=== PATIENT | male | born 1995 | race Caucasian/White ===

== ENCOUNTER 2019-09-15 11:12 | Inpatient (IN) | payer MEDICAID, SELFPAY ==
[~2019-09-15] VITALS: Ht 172.7 cm; Wt 70.3 kg
[2019-09-15] VITALS (7 sets, daily range): BP systolic 99–140; BP diastolic 60–86
[2019-09-15] MEDS ORDERED: ACETAMINOPHEN EXTRA STRENGTH 500 MG TAB PO ONE (11:15)
--- NOTE | 2019-09-15 11:15 | NUR ---
24 y/o male biba from [facility] to vent for fever and sob. pt able to speak, states fever and sob started this morning. per ems pt is usually off the vent during the day and on it at night time. rr even and tachypnic. pt febrile of 100 upon arival. cooling measures in place. productive cough noted. denies n/v/d. placed on monitor.
--- NOTE | 2019-09-15 11:21 | NUR ---
20g iv placed to pts rt forearm, labs drawn at this time
--- NOTE | 2019-09-15 11:31 | NUR ---
influenza and covid-19 swab collected from pt
[2019-09-15 11:41] LABS: BASOPHILS # (AUTO) 0.1 K/uL (0.00-0.22); BASOPHILS % (AUTO) 0.5 % (0.0-2.0); EOSINOPHILS # (AUTO) 0.1 K/uL (0-0.4); EOSINOPHILS % (AUTO) 1.1 % (0.0-4.0); HEMATOCRIT 38.9 % (36-52); HEMOGLOBIN 12.5 g/dL (12.0-18.0); LYMPHOCYTES % (AUTO) 7.6 % (20.5-51.1); MEAN CORPUSCULAR HEMOGLOBIN 27 pg (27-31); MEAN CORPUSCULAR HGB CONC 32 g/dL (33-37); MEAN CORPUSCULAR VOLUME 83.6 fL (80-94); MONOCYTES # (AUTO) 0.8 K/uL (0.8-1.0); MONOCYTES % (AUTO) 6.3 % (1.7-9.3); NEUTROPHILS # (AUTO) 10.5 K/uL (1.8-7.7); NEUTROPHILS % (AUTO) 84.5 % (42.2-75.2); PLATELET COUNT (AUTO) 416 K/uL (140-450); RED BLOOD CELL COUNT(AUTO) 4.65 MIL/uL (4.20-6.10); RED CELL DISTRIBUTION WIDTH 14.7 % (11.6-13.7); WHITE BLOOD COUNT (AUTO) 12.5 K/uL (4.8-10.8)
--- NOTE | 2019-09-15 11:46 | NUR ---
xray at bedside
[2019-09-15 12:00] LABS: ALBUMIN 2.9 g/dL (3.4-5.0); ANION GAP 15.7 (8-16); CARBON DIOXIDE 29.5 mmol/L (21-32); CREATININE 0.2 mg/dL (0.6-1.3); POTASSIUM 4.2 mmol/L (3.5-5.1); TOTAL BILIRUBIN 0.3 mg/dL (0.0-1.0)
[2019-09-15 12:04] LABS: PROTHROMBIN TIME 11.1 secs (10.8-13.4)
[2019-09-15] MEDS ORDERED: NACL 0.9% 500 ML IV ONE (12:10)
[2019-09-15] MEDS ORDERED: PIPERACILLIN/TAZOBACTAM 3.375 GM in DEXTROSE 5% 50 ML IV ONE (12:10)
[2019-09-15] MEDS ORDERED: ACETAMINOPHEN 650 MG SUPP RC ONE (12:10)
[2019-09-15] MEDS ORDERED: ACETAMINOPHEN 325 MG SUPP RC ONE (12:10)
[2019-09-15] MEDS ORDERED: PIPERACILLIN/TAZOBACTAM 3.375 GM VIAL IV ONE (12:17)
[2019-09-15] MEDS ORDERED: MIRABULK PO (12:24)
[2019-09-15] MEDS ORDERED: CHOL200074 PO (12:24)
[2019-09-15] MEDS ORDERED: MAGN400S60 PO (12:24)
[2019-09-15] MEDS ORDERED: DOCU-299 PO (12:24)
[2019-09-15] MEDS ORDERED: DIPH25TA53 PO (12:24)
[2019-09-15] MEDS ORDERED: LORA10TA19 PO (12:24)
[2019-09-15] MEDS ORDERED: MULT-153 PO (12:24)
[2019-09-15] MEDS ORDERED: METO25TE2 PO (12:24)
--- NOTE | 2019-09-15 12:27 | NUR ---
PT PLACED ON BEDPAN.
[2019-09-15] MEDS ORDERED: LORazepam 2 MG/ML VIAL IM/IVP PRN (12:35)
[2019-09-15] MEDS ORDERED: ACETAMINOPHEN 325 MG TAB PO PRN (12:35)
[2019-09-15] MEDS ORDERED: ONDANSETRON 4 MG/2 ML VIAL IM/IVP PRN (12:35)
[2019-09-15] MEDS ORDERED: DOCUSATE SODIUM 100 MG GELCAP PO PRN (12:35)
--- NOTE | 2019-09-15 12:35 | NUR ---
RESPIRATORY AT BEDSIDE FOR ABG
[2019-09-15] MEDS ORDERED: BISA-213 RC (12:41)
[2019-09-15] MEDS ORDERED: ROBAC PO (12:41)
[2019-09-15] MEDS ORDERED: IBUP-44 PO (12:41)
[2019-09-15] MEDS ORDERED: NA P133E RC (12:41)
[2019-09-15] MEDS ORDERED: FLONAS NS (12:41)
--- NOTE | 2019-09-15 12:47 | NUR ---
PT REMOVED FROM BEDPAN AT THIS TIME, NO FURTHER COMPLAINTS
--- NOTE | 2019-09-15 13:23 | NUR ---
PT LAYING IN BED POSITIONED FOR COMFORT. REMAINS ON MONITOR. NO FURTHER COMPLAINTS AT THIS TIME. WILL CONTINUE TO MONITOR
[2019-09-15] MEDS ORDERED: guaiFENesin/CODEINE 100/10MG 5 ML UDC PO PRN (14:10)
[2019-09-15] MEDS ORDERED: SODIUM PHOSPHATE 118 ML ENEM RC PRN (14:10)
[2019-09-15] MEDS ORDERED: MAGNESIUM HYDROXIDE 2400 MG/30 ML UDC PO PRN (14:10)
[2019-09-15] MEDS ORDERED: BISACODYL 10 MG SUPP RC PRN (14:10)
[2019-09-15] MEDS ORDERED: LORATADINE 10 MG TAB PO PRN (14:10)
[2019-09-15] MEDS ORDERED: IBUPROFEN 200 MG TAB PO PRN (14:10)
[2019-09-15] MEDS ORDERED: IBUPROFEN 400 MG TAB PO PRN (14:23)
--- NOTE | 2019-09-15 14:53 | NUR ---
RESTING WITH EYES CLOSED. VISIBLE RISE AND FALL OF THE CHEST. AROUSABLE TO NAME. WILL CONTINUE TO MONITOR
[2019-09-15] MEDS: NACL 0.9% 1,000 ML IV SCH (15:30)
[2019-09-15] MEDS ORDERED: HYDROcodone/APAP 5/325 MG 1 TAB TAB PO PRN (15:30)
--- NOTE | 2019-09-15 15:30 | NUR ---
RECEIVED PATIENT FROM ER VIA GURNEY, OBTAINED REPORT AT BEDSIDE, PT IS AAOX4, APHASIC, TRACH TO VENT, FOLLOW COMMANDS, VSS, DENIES PAIN, NO S/S OF DISTRESS, RHONCHI LUNG SOUNDS MECHE. O2 SAT AT 95 %, SR ON PESTICIDE APPLICATOR, CAP REFILL <2 SEC, NO EDEMA PRESENT, SOFT ABDOMEN WITH ACTIVE BOWEL SOUNDS, CONTINENT WITH B&B'S, SKIN IS INTACT, WARM AND DRY TO TOUCH, IV SITE TO RIGHT FOREARM, 20GA, PATENT AND SL, SEVERE WEAKNESS TO ALL EXTREMITIES, HOB ELEVATED TO 30 DEGREES, SAFETY MEASURES IN PLACE, CALL LIGHT WITHIN REACH, WILL CONTINUE TO MONITOR.
--- NOTE | 2019-09-15 15:36 | NUR ---
Patient will be admitted to care of DR MONTIEL. Admited to ICU. Will go to room 3. Belongings list completed. Report to BENNETT GÓMEZ.
[2019-09-15 16:03] LABS: PHOSPHORUS 4.4 mg/dL (2.5-4.9)
[2019-09-15 16:25] LABS: CKMB RELATIVE INDEX 2.1 (0.0-2.5); CREATINE KINASE MB 7.1 ng/mL (0-3.6)
--- NOTE | 2019-09-15 16:40 | NUR ---
DR. PRUITT CAME IN TO SEE PATIENT AT BEDSIDE, UPDATED PATIENT'S CONDITION, WILL FOLLOW UP WITH NEW ORDERS.
--- NOTE | 2019-09-15 18:00 | NUR ---
NO CHANGE OF CONDITION, PT IS 1:1 FEEDER, ATE 25% OF DINNER AT THIS TIME, POSITION CHANGED FOR OFF LOAD PRESSURE.
[2019-09-15] MEDS: PIPERACILLIN/TAZOBACTAM 3.375 GM in DEXTROSE 5% 50 ML IV SCH ×2 (18:51→23:52)
--- NOTE | 2019-09-15 19:20 | NUR ---
BEDSIDE REPORT RECEIVED FROM AM SHIFT RN, PT IS AAOX4, APHASIC, TRACH TO VENT, ON ACVC MODE FIO2 40, TV 500, RR 15, PEEP 5. FOLLOW COMMANDS, VSS, DENIES PAIN, NO S/S OF DISTRESS, RHONCHI LUNG SOUNDS. ST ON REFORMATORY ATTENDANT, CAP REFILL <2 SEC, NO EDEMA NOTED, SOFT ABDOMEN WITH ACTIVE BOWEL SOUNDS. SKIN INTACT, WARM AND DRY. IV SITE TO RIGHT FOREARM, 20G INFUSING NS AT 75 ML/HR. SEVERE WEAKNESS TO ALL EXTREMITIES, HOB ELEVATED TO 30 DEGREES, SAFETY MEASURES IN PLACE, CALL LIGHT WITHIN REACH, WILL CONTINUE TO MONITOR.
--- NOTE | 2019-09-15 19:20 | NUR ---
REPORT GIVEN TO FLASH DEVELOPER NURSE AT BEDSIDE FOR CONTINUE OF CARE, PT IS IN STABLE CONDITION AT THIS TIME.
[2019-09-15] MEDS: KETOCONAZOLE 2% 15 GM TUBE TP SCH (21:00)
[2019-09-15] MEDS: DOCUSATE SODIUM 100 MG GELCAP PO SCH (21:00)
--- NOTE | 2019-09-15 21:16 | NUR ---
SCHEDULED MEDICATIONS GIVEN. PO COLACE GIVEN WITH APPLESAUCE. CALL LIGHT WITHIN REACH. SAFETY PRECAUTIONS IN PLACE. WILL CONTINUE MONITOR.
[2019-09-15] MEDS ORDERED: VANCOMYCIN PER PHARMACY MC PRN (22:00)
[2019-09-15] MEDS ORDERED: DEXTROSE 5% IV ONE (22:45)
[2019-09-15] MEDS ORDERED: VANCOMYCIN IV ONE (22:45)
[2019-09-15] MEDS ORDERED: VANCOMYCIN HCL IV ONE (22:45)
[2019-09-15] MEDS ORDERED: VANCOMYCIN 1,000 MG VIAL ONE (23:31)
--- NOTE | 2019-09-15 23:48 | NUR ---
PT WATCHING TELEVISION. RESTING IN BED. RESPIRATIONS EVEN AND UNLABORED. SAFETY PRECAUTIONS IN PLACE. WILL CONTINUE MONITOR.
[2019-09-16] VITALS (11 sets, daily range): BP systolic 91–115; BP diastolic 47–75
--- NOTE | 2019-09-16 00:18 | NUR ---
PT HAS EYES CLOSED. TRACH TO VENT. RESPIRATIONS EVEN AND UNLABORED. CHEST RISE IS SYMMETRICAL. HOB 30 DEGREES. BED LOCKED IN LOWEST POSITION. WILL CONTINUE TO MONITOR.
--- NOTE | 2019-09-16 02:33 | NUR ---
PT HAS EYES CLOSED, RESTING IN BED. TRACH TO VENT. RESPIRATIONS EVEN AND UNLABORED. CHEST RISE IS SYMMETRICAL. HOB 30 DEGREES. BED LOCKED IN LOWEST POSITION. WILL CONTINUE TO MONITOR.
--- NOTE | 2019-09-16 03:02 | NUR ---
PT HAD BOWEL MOVEMENT. PT CLEANED, REPOSITIONED. BED LOCKED IN LOWEST POSITION. HOB 30 DEGREES. WILL CONTINUE TO MONITOR.
[2019-09-16 03:49] LABS: APPEARANCE,URINE CLEAR (CLEAR); COLOR,URINE YELLOW (YELLOW)
[2019-09-16 03:50] LABS: BILIRUBIN,URINE NEGATIVE (NEGATIVE); BLOOD, URINE NEGATIVE (NEGATIVE); UGLUCOSE NEGATIVE (NEGATIVE)
[2019-09-16 03:51] LABS: LEUKOCYTE ESTERASE ,URINE NEGATIVE (NEGATIVE); NITRITE, URINE NEGATIVE (NEGATIVE)
[2019-09-16 03:55] LABS: RBC,URINE 0-5 /HPF (0-5)
[2019-09-16 04:01] LABS: WBC,URINE 0-5 /HPF (0-5)
--- NOTE | 2019-09-16 04:58 | NUR ---
PATIENT APPEARS STABLE ON CHARTED SETTINGS. NO CHANGES. CONTINUE TO MONITOR.
[2019-09-16] MEDS: NACL 0.9% 1,000 ML IV SCH ×3 (05:42→13:17)
[2019-09-16] MEDS: PIPERACILLIN/TAZOBACTAM 3.375 GM in DEXTROSE 5% 50 ML IV SCH ×3 (05:43→17:45)
[2019-09-16 06:30] LABS: BASOPHILS # (AUTO) 0.1 K/uL (0.00-0.22); BASOPHILS % (AUTO) 0.5 % (0.0-2.0); EOSINOPHILS # (AUTO) 0.2 K/uL (0-0.4); HEMATOCRIT 33.9 % (36-52); LYMPHOCYTES # (AUTO) 1.4 K/uL (2.0-11.5); LYMPHOCYTES % (AUTO) 13.1 % (20.5-51.1); MEAN CORPUSCULAR HEMOGLOBIN 27 pg (27-31); MEAN CORPUSCULAR HGB CONC 32 g/dL (33-37); MEAN CORPUSCULAR VOLUME 84.5 fL (80-94); MONOCYTES # (AUTO) 0.7 K/uL (0.8-1.0); MONOCYTES % (AUTO) 6.9 % (1.7-9.3); NEUTROPHILS # (AUTO) 8.1 K/uL (1.8-7.7); NEUTROPHILS % (AUTO) 77.5 % (42.2-75.2); PLATELET COUNT (AUTO) 378 K/uL (140-450); RED BLOOD CELL COUNT(AUTO) 4.02 MIL/uL (4.20-6.10); RED CELL DISTRIBUTION WIDTH 14.9 % (11.6-13.7); WHITE BLOOD COUNT (AUTO) 10.4 K/uL (4.8-10.8)
--- NOTE | 2019-09-16 06:55 | NUR ---
PT REQUESTING SUCTION. SUCTION PROVIDED. WILL CONTINUE TO MONITOR
--- NOTE | 2019-09-16 07:00 | NUR ---
PT REQUESTED TO USE URINAL, WILL CONTINUE TO MONITOR.
[2019-09-16 07:22] LABS: ALBUMIN 2.5 g/dL (3.4-5.0); ANION GAP 11.2 (8-16); ASPARTATE AMINOTRANSFERASE 32 U/L (15-37); CARBON DIOXIDE 28.2 mmol/L (21-32); CHLORIDE 99 mmol/L (98-107); CREATININE 0.2 mg/dL (0.6-1.3); GFR ARICAN-AMERICAN 756 mL/min (>90); GLUCOSE 91 mg/dL (74-106); LACTATE DEHYDROGENASE 137 U/L (85-227); PHOSPHORUS 4.4 mg/dL (2.5-4.9); POTASSIUM 3.4 mmol/L (3.5-5.1); SODIUM SERUM 135 mmol/L (136-145); TOTAL BILIRUBIN 0.4 mg/dL (0.0-1.0); UREA NITROGEN, BLOOD 10 mg/dL (7-18)
--- NOTE | 2019-09-16 07:25 | NUR ---
RECEIVED TRACH PT WITH A SHILEY 6 TRACH ON VENT. SETTINGS AC 12, VT 450, PEEP 5 AND FIO2 35%. PT SUCTIONED OBTAINED SMALL AMOUNT OF THICK PALE YELLOW SECRETIONS , AIRWAY IS PATENT AND TRACH IS SECURE. PT IS AWAKE AND NOT IN ANY DISTRESS. VENT IS PLUGGED INTO A RED OUTLET WITH ALARMS ON AND FUNCTIONING. WILL CONTINUE TO MONITOR.
--- NOTE | 2019-09-16 07:26 | NUR ---
BEDSIDE REPORT GIVEN TO FATIMAH GUAJARDO. FOR CONTINUITY OF CARE. PT IN STABLE CONDITION.
--- NOTE | 2019-09-16 08:00 | NUR ---
Patient ST on monitor without ectopy. On vent to trach, cpap mode and breathing well. Suctioned for thin white secretions. No co pain. Mil Rich RN
[2019-09-16] MEDS: DOCUSATE SODIUM 100 MG GELCAP PO SCH ×2 (08:22→22:59)
[2019-09-16] MEDS: LACTOBACILLUS RHAMNOSUS GG 1 EACH CAP PO SCH (08:23)
[2019-09-16] MEDS: POLYETHYLENE GLYCOL 17 GM/PKT PO SCH (08:25)
[2019-09-16] MEDS: MULTIVITAMIN 1 TAB PO SCH (08:26)
[2019-09-16] MEDS: METOPROLOL SUCCINATE 50 MG TABER PO SCH (08:26)
[2019-09-16] MEDS: CHOLECALCIFEROL 1,000 IU TAB PO SCH (08:27)
[2019-09-16] MEDS: FLUTICASONE NASAL 50 MCG/ACTUATION 16 GM BTL NS SCH (08:29)
--- NOTE | 2019-09-16 09:02 | NUR ---
PATIENT HAS BEEN SCREENED AND CATEGORIZED HIGH NUTRITION RISK. PATIENT WILL BE SEEN WITHIN 1-2 DAYS OF ADMISSION. 09/16/19-09/17/[address]
[2019-09-16] MEDS: KETOCONAZOLE 2% 15 GM TUBE TP SCH (10:07)
--- NOTE | 2019-09-16 10:30 | NUR ---
Patient having soft brown bm, and voiding in urinal. Patient repositioned to comfort after linens changed. Mil Rich RN
--- NOTE | 2019-09-16 11:03 | NUR ---
DISCHARGE PLANNING: THIS IS A 24 Y/O MALE PATIENT FROM [facility], WHO WAS BIBA DUE TO TEMP 100.4 AND SOB. PAST MEDICAL HISTORY INCLUDE DUCHENNE MUSCULAR DYSTROPHY, OBSTRUCTIVE SLEEP APNEA, RESTRICTIVE BLANCA DISEASE, CHF AND HTN. INITIAL DIAGNOSIS OF PNEUMONIA, R/O COVID. CURRENT LABS INCLUDE WBC 10.4, H/H 11.0/33.9, BUN/CREA 10/0.2 AND ALB 2.5. URINE, BLOOD AND SPUTUM CS PENDING. NEGATIVE INF A AND B. COVID 19 PENDING. ON VANCO, ZOSYN. CXR SHOWED MILD LEFT BASILAR OPACITY AND TRACE LEFT PLEURAL EFFUSION. ID AND PULMO CONSULTS IN PLACE. DC PLAN BACK TO [facility] ONCE STABLE. Addendum: 09/19/19 at 1200 by Karissa Merida RECEIVED AN ORDER TO DC BACK TO [facility] FOR IV ZOSYN FOR 5 DAYS AND PT. ORDER AND PT NOTES FAXED TO [facility]. WILL FOLLOW UP. Addendum: 09/19/19 at 1203 by Karissa Merida CM CONTACTED FRANKIEArnav WALKER OF [facility] AT [phone] REGARDING DC PLAN, GUANAKO DOROTEO. LEFT A DETAILED MESSAGE INCLUDING CONTACT INFO. Addendum: 09/19/19 at 1307 by Karissa Merida CM PER ANA PAULA, PATIENT WILL GO TO ROOM 24A DR. NGUYEN. WILL SET UP TRANSPORT. Addendum: 09/19/19 at 1352 by Karissa Merida CM CONTACTED [facility] AT [phone], ABLE TO SPEAK TO JOHNATHAN/NIKITA. PAPER BAG MAKING MACHINIST WILL BE IN AN HOUR. PRIMARY BENNETT LAGOS AND DR. SELBY MADE AWARE. SANA PHILLIPS [facility] MADE AWARE WELL.
[2019-09-16] MEDS: VANCOMYCIN 750 MG in DEXTROSE 5% 250 ML IV SCH ×2 (11:13→21:01)
--- NOTE | 2019-09-16 11:24 | NUR ---
Fun House Operator Note: Basic Screen: Yes High Risk DC Screen [place]: MARLIN PROCTOR [place] Relationship: IRC WORKER Pre-Admission Living Arrangements: SNF Other: [facility] Prior ADL Needs Assistance Current Home Health Name/Tel: N/A Current DME/02 Name/Tel: [facility], TRACH Current Hospice Name/Tel: N/A Current Dialysis Name/Tel: N/A Healthcare Decision Maker: Patient Advance Directive No Physician Orders for Life Sustaining Treatment Form No Patient/Family Have Educational Needs No Discipline: Case Mgt/Social Svcs Tentative Discharge Plan/Destination: SNF/ECF Other: [facility] Will require assistance post discharge: No Referred to Procedure Rn: No Tentative Discharge Plan Summary: Patient is a 24-year-old male admitted for pneumonia and r/o COVID. Patient has PMHX of Duchenne Muscular Dystrophy, obstructive of sleep apnea, restrictive lung disease, congestive heart failure, cardiomyopathy, hypertension, and GERD. SW contacted Abdi from [facility] to verify demographics [phone]. Per Abdi, patient is half-way and on a bed hold. Abdi reported that patient is alert/oriented at baseline and can make needs known. Abdi stated that patient has an [facility] wworker, Marlin Proctor [phone] who assists with medical decisions. Abdi also stated that no family is involved. Tentative discharge plan is for patient to return to [facility]. No further needs identified. Signature: Faizan Bray Date: Sep 16, 2019 Time: 11:23
--- NOTE | 2019-09-16 12:07 | NUR ---
PT REMAINS ON SBT CPAP 5 PS 10 FIO2 35% TOLERATING WELL PT ABLE TO OPEN EYES FOLLOW SIMPLE COMMANDS. ABG RESULTS GIVEN TO RESIDENT DOCTORS. Addendum: 09/16/19 at 1403 by Mil Bragg RT INCORRECT PATIENT*
--- NOTE | 2019-09-16 12:08 | NUR ---
DR.ZAIDI ROMERO REGARDING ABG AND PT STATUS. Addendum: 09/16/19 at 1403 by Mil Bragg RT INCORRECT PATIENT *
--- NOTE | 2019-09-16 12:30 | NUR ---
Patient is feeder and eats 30% of lunch. No co pain. Suctioned after eating. Mil Mcclendon RN
--- NOTE | 2019-09-16 13:03 | NUR ---
ST: BEDSIDE SWALLOW EVAL COMPLETED Pt ABLE TO TOLERATE MSC FOOD AND THIN LIQUIDS BY STRAW (SINGLE SIPS RECOMMENDED) W/O DIFFICULTY OR OVERT S/S OF ASPIRATION OR PENETRATION NOTED. Pt REPORTED TYPICAL USE OF PMV SPEAKING VALVE DURING MEALS W/ CUFF DEFLATION AND SUCTION BEFORE/AFTER MEALS TO INCREASE SAFETY OF SWALLOW. REC NEW PMV ORDERED HERE AT HOSPITAL D/T Pt's PM IS AT SNF. REC MSC/THIN LIQUIDS, SINGLE SIPS VIA STRAW, W/ ASPIRATION PRECAUTIONS, ORAL CARE, SUCTION BEFORE/AFTER MEALS, PMV IN PLACE, CUFF DEFLATION, AND FEEDER NEEDED. DISCUSSED RECOMMENDATIONS WITH RNCANDACE, AND RTCANDACE.
--- NOTE | 2019-09-16 14:00 | NUR ---
PT TAKEN OFF OF VENT AND PLACED ON COOL AEROSOL 30%. PT TOLERATING WELL AND NOT IN ANY DISTRESS AT THIS TIME. NURSE IS BEDSIDE. WILL CONTINUE TO MONITOR. PT WILL BE PLACED BACK ON VENT FOR NOC.
--- NOTE | 2019-09-16 15:50 | NUR ---
09/16/19 RD INITIAL ASSESSMENT COMPLETED PLEASE REFER TO NUTRITION ASSESSMENT UNDER CARE ACTIVITY FOR ESTIMATED NUTRITIONAL NEEDS. 1. RECOMMEND HIGH FIBER, NA2GM, MECHANICAL SOFT DIET TOLERATED 2. CONTINUE ENSURE MAX BID 3. PROVIDE ASSISTANCE WITH MEALS 4. ENCOURAGE PO INTAKE 5. RD TO FOLLOW-UP 2-3 DAYS, HIGH RISK [address]
--- NOTE | 2019-09-16 18:30 | NUR ---
Patient transferring to telemetry and report endorsed to RN receiving patient. Mil Rich RN
[2019-09-16] MEDS: PANTOPRAZOLE 40 MG INJ VIAL IVP SCH (18:32)
--- NOTE | 2019-09-16 19:35 | NUR ---
PT TRANSFERRED IN BED TO ROOM 108 ,NO S/S OF PAIN OR DISTRESS AKIRA RT AT BEDSIDE PROVIDING SUCTIONING TO PT . PT IS TRACH TO PIECE AT THIS TIME. HE IS AOX4 ABLE TO MOVE HANDS SLIGHTLY TO CONTROL CALL VELOZ AND TV. HE HAS A RIGHT F/A 20G RUNNING NORMAL SALINE AT 75. PT FINISHED WITH ZOSYN AT THIS TIME. PT REQUESTS NO NEEDS AT THIS TIME ALL FALLS PRECAUTIONS IN PLACE.
--- NOTE | 2019-09-16 19:45 | NUR ---
VANCOMYCIN HUNG AND RUNNING ORDERED.
--- NOTE | 2019-09-16 19:50 | NUR ---
PT SAFELY TRANSFER TO [facility]. PT PLACED ON COOL AERESOL 30%/ PT IS IN NO DISTRESS. WILL CONT TO MONITOR
--- NOTE | 2019-09-16 20:00 | NUR ---
PT IN BED AOX3-4 TRACH TO PIECE IV SITE INTACT AND RUNNING N/S ORDERED. PT WAS ASSISTED WITH THE URINAL, HE WAS TURNED AND CHANGED AND REPOSITIONED HE HAD A SMALL BM X1. PT WAS ALSO SUCTIONED AND GIVEN ORAL CARE. V/S FOLLOWS: T 97.9 P 109 R 20 B/P 98/70 02 98% ALL FALLS AND ASPIRATION PRECAUTIONS IN PLACE.
[2019-09-16] MEDS ORDERED: POTASSIUM CHLORIDE 10 MEQ TABER PO ONE ×2 (21:00→22:30)
--- NOTE | 2019-09-16 21:00 | NUR ---
PT RECEIVED COLACE, HEPARIN AND NIZORAL TOPICAL CREAM. ALL MEDS EXPLAINED INCLUDING SIDE EFFECTS. PT COMMUNICATED UNDERSTANDING.
--- NOTE | 2019-09-16 21:15 | NUR ---
SXNED PATIENT AND DID TRACH CARE. NO SOB NOTED. PATIENT WANTS TO GO ON VENT AT MIDNIGHT
--- NOTE | 2019-09-16 22:00 | NUR ---
PT WAS TURNED, CHANGED AND REPOSITIONED, HE WAS ALSO SUCTIONED REQUESTED. ALL FALLS PRECAUTIONS IN PLACE.
--- NOTE | 2019-09-16 23:57 | NUR ---
PLACED PT ON VENT. AC12 VT 450 PEEP5 AT FIO2 30%. SXNED PT SMALL AMT PALE YELLOW SECRETIONS. NO SOB NOTED
[2019-09-17] VITALS: BP 113/60
--- NOTE | 2019-09-17 | NUR ---
PT IN BED ZOSYN HUNG AND RUNNING ORDERED. V/S FOLLOWS: T 97.7 P 92 R 18 B/P 113/60 02 100% ON TRACH TO PIECE. ALL FALLS AND ASPIRATIONS IN PLACE.
[2019-09-17] MEDS: KETOCONAZOLE 2% 15 GM TUBE TP SCH ×3 (01:03→21:58)
[2019-09-17] MEDS: PIPERACILLIN/TAZOBACTAM 3.375 GM in DEXTROSE 5% 50 ML IV SCH ×5 (01:15→23:23)
--- NOTE | 2019-09-17 02:00 | NUR ---
PT REPOSITIONED IN BED ALL REQUESTS ATTENDED.
[2019-09-17 04:00] VITALS: BP 112/70
--- NOTE | 2019-09-17 04:00 | NUR ---
PT IN BED HE WAS TURNED, CHANGED AND REPOSITIONED IN BED, PT WAS ALSO SUCTIONED REQUESTED. V/S FOLLOWS: T 98.0 P 94 R 18 B/P 108/66 02 100% ON TRACH TO VENT. HOB UP AND ALL ASPIRATION PRECAUTIONS IN PLACE. VANCOCIN HUNG AND RUNNING AT 165 ORDERED. ALL FALLS PRECAUTIONS IN PLACE.
[2019-09-17] MEDS: VANCOMYCIN 750 MG in DEXTROSE 5% 250 ML IV SCH ×4 (04:29→18:38)
[2019-09-17 06:34] LABS: ANION GAP 12.8 (8-16); CARBON DIOXIDE 27.3 mmol/L (21-32); CREATININE 0.2 mg/dL (0.6-1.3); POTASSIUM 3.1 mmol/L (3.5-5.1)
[2019-09-17 06:38] LABS: BASOPHILS % (AUTO) 0.5 % (0.0-2.0); EOSINOPHILS # (AUTO) 0.2 K/uL (0-0.4); EOSINOPHILS % (AUTO) 2.5 % (0.0-4.0); HEMATOCRIT 33.8 % (36-52); HEMOGLOBIN 10.8 g/dL (12.0-18.0); LYMPHOCYTES # (AUTO) 1.2 K/uL (2.0-11.5); LYMPHOCYTES % (AUTO) 13.2 % (20.5-51.1); MEAN CORPUSCULAR HEMOGLOBIN 27 pg (27-31); MEAN CORPUSCULAR HGB CONC 32 g/dL (33-37); MEAN CORPUSCULAR VOLUME 83.9 fL (80-94); MONOCYTES # (AUTO) 0.9 K/uL (0.8-1.0); MONOCYTES % (AUTO) 9.3 % (1.7-9.3); NEUTROPHILS % (AUTO) 74.5 % (42.2-75.2); PLATELET COUNT (AUTO) 344 K/uL (140-450); RED BLOOD CELL COUNT(AUTO) 4.03 MIL/uL (4.20-6.10); RED CELL DISTRIBUTION WIDTH 14.5 % (11.6-13.7); WHITE BLOOD COUNT (AUTO) 9.3 K/uL (4.8-10.8)
--- NOTE | 2019-09-17 07:15 | NUR ---
RECEIVED REPORT FROM EMERGENCY VEHICLE OPERATOR NURSE. PATIENT AAOX4, VENTILATED SPEECH, ON TRACH TO VENT. NO DISTRESS NOTED. DENIES ANY PAIN, FLACC 0. VENT SETTINGS: FIO2:30%, VT:450, RATE:12, FLOW 40, PEEP 5 WITH O2 SAT AT 100%. IV SITE INTACT, PATENT, AND INFUSING IVF PER MD ORDERS. SKIN COLOR APPROPRIATE TO ETHNICITY, WARM TO TOUCH, SKIN INTACT. ABDOMEN SOFT, NON-DISTENDED. REVIEWED PLAN OF CARE WITH PATIENT. PATIENT VERBALIZED UNDERSTANDING. WILL CONTINUE TO MONITOR.
--- NOTE | 2019-09-17 07:27 | NUR ---
REC'D PT ON [place]ESCAPE VENT SETTINGS AC 12 VT 450 PEEP 5 FIO2 35% ALARMS ON AND AUDIBLE AND AMBU BAG AT HOB AND VENT IS PLUGGED INTO RED OUTLET, SXN PT MODERATE AMT OF THICK YELLOW SECRETIONS, B\S ARE RHONCHI BILATERALLY, PT IS TRACH WITH SHILEY 6 PT IS RESTING WITH NO SIGNS OF DISTRESS NOTED
[2019-09-17] MEDS: NACL 0.9% 1,000 ML IV SCH ×2 (07:30→20:50)
[2019-09-17] MEDS: MAG SULF 2000 MG/WATER PREMIX 50 ML IV SCH ×2 (07:32→07:41)
[2019-09-17 08:00] VITALS: BP 98/59
--- NOTE | 2019-09-17 08:15 | NUR ---
TOOK PT OFF VENT AND PLACED ON 30% CA SO PT CAN EAT.
[2019-09-17] MEDS: ALBUTEROL SULFATE/IPRATROPIU 3 ML SOL IH PRN ×2 (08:53→15:28)
[2019-09-17] MEDS ORDERED: MULTIVITAMIN 1 TAB PO SCH (09:00)
[2019-09-17] MEDS: METOPROLOL SUCCINATE 50 MG TABER PO SCH (09:00)
[2019-09-17] MEDS: CHOLECALCIFEROL 1,000 IU TAB PO SCH (09:34)
[2019-09-17] MEDS: LACTOBACILLUS RHAMNOSUS GG 1 EACH CAP PO SCH (09:34)
[2019-09-17] MEDS: MULTIVITAMIN 1 TAB PO SCH (09:35)
[2019-09-17] MEDS: POLYETHYLENE GLYCOL 17 GM/PKT PO SCH (09:36)
[2019-09-17] MEDS: DOCUSATE SODIUM 100 MG GELCAP PO SCH ×2 (09:36→21:59)
[2019-09-17] MEDS: PANTOPRAZOLE 40 MG INJ VIAL IVP SCH (09:37)
[2019-09-17] MEDS: FLUTICASONE NASAL 50 MCG/ACTUATION 16 GM BTL NS SCH (09:47)
--- NOTE | 2019-09-17 09:55 | NUR ---
SCHEDULED MEDICATIONS DUE GIVEN. WILL CONTINUE TO MONITOR.
[2019-09-17 12:00] VITALS: BP 114/76
[2019-09-17] MEDS ORDERED: POTASSIUM CHLORIDE 10 MEQ TABER PO SCH (12:00)
[2019-09-17 12:22] LABS: PROTHROMBIN TIME 10.9 secs (10.8-13.4)
[2019-09-17 12:32] LABS: PHOSPHORUS 4.5 mg/dL (2.5-4.9); THYROID STIMULATING HORMONE 1.45 uIU/mL (0.34-3.74)
[2019-09-17 13:07] LABS: MAGNESIUM 2.1 mg/dL (1.8-2.4)
[2019-09-17 13:08] LABS: CHOL/HDL RATIO 3.1 (1-4.5)
[2019-09-17 13:09] LABS: FREE T4 (FREE THYROXINE) 1.36 ng/dL (0.76-1.46)
[2019-09-17 16:00] VITALS: BP 114/70
--- NOTE | 2019-09-17 18:48 | NUR ---
SCHEDULED DUE MEDICATIONS GIVEN. WILL CONTINUE TO MONITOR PATIENT.
--- NOTE | 2019-09-17 19:19 | NUR ---
GAVE REPORT TO MATHEMATICAL PHYSICIST NURSE. PATIENT IS IN STABLE CONDITION.
--- NOTE | 2019-09-17 19:20 | NUR ---
RECEIVED FROM AM RN IN BED AWAKE AND ALERT. NON VERBAL RT TRACH TO VENT. 02 SAT 99 %. CALL LIGHT WITH IN REACH. ABLE TO USE HANDS TO CALL FOR HELP. BEDBOUND RT DUCHENE MUSCLE DYSTROPHY . PT. WILL BE TURNED Q 2H. NO COMPLAINTS AT THIS TIME. ABLE TO NOD HEAD . IVF SITE INTACT AND NO NOTED S/S OF INFILTRATION.
--- NOTE | 2019-09-17 19:30 | NUR ---
RECEIVED REPORT FROM AM SHIFT. PATIENT SEEN AND ASSESSED. FOUND PATIENT ON COOL AEROSOL 30% AT 6L WITH SPO2 OF 98%. PATIENT IS IN NO APPARENT RESPIRATORY DISTRESS AT THIS TIME. PRN TX NOT INDICATED AT THIS MOMENT. WILL CONTINUE TO MONITOR.
[2019-09-17 20:00] VITALS: BP 106/65
--- NOTE | 2019-09-17 21:00 | NUR ---
PT. SUCTIONED TO A WHITISH MUCUS. TURNED PT. TO SIDES. ABLE TO VERBALIZE NEEDS WELL. ABLE TO SWALLOW P.O. MEDICATION. DENIES PAIN. ABLE TO USE CALL LIGHT FOR HELP. TELEMETRY MONITORING.
--- NOTE | 2019-09-17 22:29 | NUR ---
PT. SUCTIONED AGAIN PER REQUEST. NOTED PT. CAN VERBALIZE NEEDS WELL. NO PAIN COMPLAINTS. ABLE TO USE CALL LIGHT. PT. CLEANED RT WITH BM. USES URINAL FOR URINATING. ALL NEEDS ATTENDED TO. KEPT CLEAN,DRY AND COMFORTABLE. CALL LIGHT WITH IN HIS HAND FOR HELP.
[2019-09-18] VITALS: BP_SYST 106; BP_SYST 111; BP_DIAS 65; BP_DIAS 66
--- NOTE | 2019-09-18 | NUR ---
PT. CHECKED AND TURNED TO SIDES. SUCTION TO WHITISH MUCUS IN SMALL AMOUNT. BED BOUND. ABLE TO USE CALL LIGHT FOR HELP. TELEMETRY MONITORING. ABLE TO VERBALIZE NEEDS INSPITE OF TRACH IN PLACE. LOWER EXTREMITIES CONTRACTED RT MUSCULAR DSE. UPPER EXTREMITIES ABLE TO MOVE. DENIES PAIN. AFEBRILE.
--- NOTE | 2019-09-18 00:10 | NUR ---
VITALS DONE AT THIS TIME. VISIBLE CHEST RISE AND FALL NOTED.
[2019-09-18] MEDS: VANCOMYCIN 750 MG in DEXTROSE 5% 250 ML IV SCH (03:40)
[2019-09-18 04:00] VITALS: BP 98/74
--- NOTE | 2019-09-18 04:00 | NUR ---
AT APPROXIMATELY 0100, RT WENT TO BEDSIDE TO PUT PATIENT ON VENT SUPPORT REQUESTED. PATIENT STATED HE WILL CALL RT LATER. RN WAS NOTIFIED. CHECK ON PATIENT AT 0300. PATIENT SLEEPING AND IN NO RESPIRATORY DISTRESS AT THIS TIME: SPO2 98%. WILL CONTINUE TO MONITOR
[2019-09-18] MEDS: PIPERACILLIN/TAZOBACTAM 3.375 GM in DEXTROSE 5% 50 ML IV SCH ×3 (05:30→17:22)
--- NOTE | 2019-09-18 07:20 | NUR ---
PATIENT AWAKE AND ALERT WATCHING TV. SCHEDULED MEDS ADMINISTERED. PATIENT STILL ON TRACH TO T-PIECE. Addendum: 09/19/19 at 0721 by Emmy Summers RN TIME FOR NOTE [id number]
--- NOTE | 2019-09-18 07:25 | NUR ---
RECEIVED REPORT FROM PARKING LOT SPOTTER. PATIENT LYING DOWN IN BED WATCHING TV. NO DISTRESS NOTED. DENIES ANY PAIN. AAOX4, VENTILATED SPEECH, BUT ABLE. RESPIRATIONS EVEN, UNLABORED ON TRACH TO T-TUBE. IV SITE INTACT, PATENT, AND INFUSING IVF PER MD ORDERS. ABDOMEN SOFT, NON-DISTENDED. REVIEWED PLAN OF CARE WITH PATIENT. PATIENT VERBALIZED UNDERSTANDING. WILL CONTINUE TO MONITOR.
[2019-09-18 08:00] VITALS: BP 122/76
[2019-09-18] MEDS: ALBUTEROL SULFATE/IPRATROPIU 3 ML SOL IH PRN (08:49)
[2019-09-18] MEDS: CHOLECALCIFEROL 1,000 IU TAB PO SCH (09:37)
[2019-09-18] MEDS: DOCUSATE SODIUM 100 MG GELCAP PO SCH ×2 (09:38→20:32)
[2019-09-18] MEDS: METOPROLOL SUCCINATE 50 MG TABER PO SCH (09:39)
[2019-09-18] MEDS: LACTOBACILLUS RHAMNOSUS GG 1 EACH CAP PO SCH (09:39)
[2019-09-18] MEDS: MULTIVITAMIN 1 TAB PO SCH (09:39)
[2019-09-18] MEDS: PANTOPRAZOLE 40 MG INJ VIAL IVP SCH (09:48)
[2019-09-18] MEDS: KETOCONAZOLE 2% 15 GM TUBE TP SCH ×2 (09:49→20:34)
[2019-09-18] MEDS: FLUTICASONE NASAL 50 MCG/ACTUATION 16 GM BTL NS SCH (09:49)
[2019-09-18] MEDS: POLYETHYLENE GLYCOL 17 GM/PKT PO SCH (09:49)
[2019-09-18] MEDS: NACL 0.9% 1,000 ML IV SCH ×2 (10:02→23:30)
--- NOTE | 2019-09-18 10:41 | NUR ---
SCHEDULED DUE MEDICATIONS GIVEN. WILL CONTINUE TO MONITOR PATIENT.
[2019-09-18 12:00] VITALS: BP 108/70
[2019-09-18 13:45] LABS: BASOPHILS % (AUTO) 0.3 % (0.0-2.0); EOSINOPHILS # (AUTO) 0.1 K/uL (0-0.4); HEMOGLOBIN 11.2 g/dL (12.0-18.0); LYMPHOCYTES # (AUTO) 1.1 K/uL (2.0-11.5); LYMPHOCYTES % (AUTO) 8.9 % (20.5-51.1); MEAN CORPUSCULAR HEMOGLOBIN 26 pg (27-31); MEAN CORPUSCULAR HGB CONC 31 g/dL (33-37); MEAN CORPUSCULAR VOLUME 84.5 fL (80-94); MONOCYTES % (AUTO) 7.8 % (1.7-9.3); NEUTROPHILS # (AUTO) 10.2 K/uL (1.8-7.7); PLATELET COUNT (AUTO) 362 K/uL (140-450); RED BLOOD CELL COUNT(AUTO) 4.26 MIL/uL (4.20-6.10); RED CELL DISTRIBUTION WIDTH 14.6 % (11.6-13.7); WHITE BLOOD COUNT (AUTO) 12.4 K/uL (4.8-10.8)
[2019-09-18 14:37] LABS: ANION GAP 18.3 (8-16); CREATININE 0.2 mg/dL (0.6-1.3); POTASSIUM 3.3 mmol/L (3.5-5.1)
[2019-09-18 14:43] LABS: MAGNESIUM 1.7 mg/dL (1.8-2.4); PHOSPHORUS 4.7 mg/dL (2.5-4.9)
[2019-09-18 16:00] VITALS: BP 116/74
[2019-09-18] MEDS ORDERED: VANCOMYCIN 1,000 MG in DEXTROSE 5% 250 ML IV SCH (16:00)
[2019-09-18] MEDS ORDERED: POTASSIUM CHLORIDE 10 MEQ TABER PO SCH (16:15)
--- NOTE | 2019-09-18 16:36 | NUR ---
SCHEDULED DUE MEDICATIONS GIVEN. WILL CONTINUE TO MONITOR.
--- NOTE | 2019-09-18 19:19 | NUR ---
RECEIVED BEDSIDE REPORT FROM AM SHIFT NURSE. PATIENT IS LYING IN BED, AWAKE AND ALERT WATCHING TV. NO SOB OR DISTRESS NOTED. ON TRACH TO T-PIECE, TOLERATING WELL. IV ACCESS ON RIGHT FOREARM 22 GAUGE, PATENT, INTACT AND INFUSING WELL. INITIAL ASSESSMENT DONE. SKIN IS INTACT. BED IN LOW. BED LOCKED. SAFETY MEASURES IN PLACE. CALL LIGHT WITHIN PATIENT REACH. WILL CONTINUE TO MONITOR PATIENT.
--- NOTE | 2019-09-18 19:20 | NUR ---
ENDORSED PATIENT TO SUPERVISOR WATERWORKS NURSE. PATIENT IS STABLE.
[2019-09-18 20:00] VITALS: BP 111/77
--- NOTE | 2019-09-18 23:00 | NUR ---
ROUNDS DONE. PATIENT STILL WATCHING TV. WANTED TO BE SUCTIONED THROUGH TRACH AND MOUTH. NO DISTRESS NOTED.
[2019-09-19 00:05] VITALS: BP 104/56
--- NOTE | 2019-09-19 00:10 | NUR ---
VITALS DONE AT THIS TIME. VISIBLE CHEST RISE AND FALL NOTED.
[2019-09-19] MEDS: PIPERACILLIN/TAZOBACTAM 3.375 GM in DEXTROSE 5% 50 ML IV SCH ×3 (00:43→12:28)
--- NOTE | 2019-09-19 01:41 | NUR ---
PLACED PT ON VENT FOR THE NIGHT. TOLERATING WELL. HR 99. SPO2 99%. ON CONTINUOUS PULSE OX. AMBU BAG AT BEDSIDE. ALARMS ARE ON AND AUDIBLE. WILL CONTINUE TO MONITOR.
--- NOTE | 2019-09-19 02:15 | NUR ---
ROUNDS DONE. VISIBLE CHEST RISE AND FALL NOTED. PATIENT TOLERATING VENT WELL. WILL CONTINUE TO MONITOR PATIENT.
[2019-09-19 04:00] VITALS: BP 105/70
--- NOTE | 2019-09-19 04:10 | NUR ---
VITALS DONE AT THIS TIME. VISIBLE CHEST RISE AND FALL NOTED. WILL CONTINUE TO MONITOR PATIENT.
[2019-09-19] MEDS: NACL 0.9% 1,000 ML IV SCH (05:06)
--- NOTE | 2019-09-19 07:13 | NUR ---
PATIENT IN STABLE CONDITION. ENDORSED TO AM SHIFT NURSE FOR CONTINUITY OF CARE.
--- NOTE | 2019-09-19 07:14 | NUR ---
RECEIVED REPORT FROM DAY SHIFT NURSE. AOX4, ABLE T O VERBALIZE NEEDS. NO NO C/O PAIN, NO SOB. RESPIRATIONS EVEN, UNLABORED ON TRACH TO T-TUBE. IV SITE INTACT AND PATENT ON RFA 22G INFUSING WELL. AREVIEWED PLAN OF CARE WITH PATIENT. PATIENT VERBALIZED UNDERSTANDING. CALL LIGHT WITHIN REACH, WILL CONTINUE TO MONITOR.
--- NOTE | 2019-09-19 07:40 | NUR ---
REMOVED PT FROM VENT AND PLACED PT ON COOL AEROSOL NO ADVERSE REACTIONS BMV AT BEDSIDE AND VENT PLUGGED INTO RED OUTLET WILLIAM CARLOS RCP
[2019-09-19 08:00] VITALS: BP 110/65
--- NOTE | 2019-09-19 08:28 | NUR ---
PATIENT C/O SOB HHN PRN THERAY GIVEN DEEP TRACHEAL SUCTION FOR LARGE THIN PLAE YELLOW SECRETIONS AIRWAY PATENT
[2019-09-19] MEDS: LACTOBACILLUS RHAMNOSUS GG 1 EACH CAP PO SCH (08:35)
[2019-09-19] MEDS: FLUTICASONE NASAL 50 MCG/ACTUATION 16 GM BTL NS SCH (08:35)
[2019-09-19] MEDS: PANTOPRAZOLE 40 MG INJ VIAL IVP SCH (08:35)
[2019-09-19] MEDS: POLYETHYLENE GLYCOL 17 GM/PKT PO SCH (08:35)
[2019-09-19] MEDS: DOCUSATE SODIUM 100 MG GELCAP PO SCH (08:35)
[2019-09-19] MEDS: METOPROLOL SUCCINATE 50 MG TABER PO SCH (08:36)
[2019-09-19] MEDS: CHOLECALCIFEROL 1,000 IU TAB PO SCH (08:36)
[2019-09-19] MEDS: MULTIVITAMIN 1 TAB PO SCH (08:36)
[2019-09-19] MEDS: KETOCONAZOLE 2% 15 GM TUBE TP SCH (08:37)
[2019-09-19 08:50] LABS: BASOPHILS % (AUTO) 0.5 % (0.0-2.0); EOSINOPHILS # (AUTO) 0.1 K/uL (0-0.4); EOSINOPHILS % (AUTO) 1.2 % (0.0-4.0); HEMATOCRIT 34.4 % (36-52); HEMOGLOBIN 11.1 g/dL (12.0-18.0); LYMPHOCYTES % (AUTO) 12.2 % (20.5-51.1); MEAN CORPUSCULAR HEMOGLOBIN 27 pg (27-31); MEAN CORPUSCULAR HGB CONC 32 g/dL (33-37); MEAN CORPUSCULAR VOLUME 83.8 fL (80-94); MONOCYTES # (AUTO) 0.8 K/uL (0.8-1.0); MONOCYTES % (AUTO) 9.9 % (1.7-9.3); NEUTROPHILS # (AUTO) 6.5 K/uL (1.8-7.7); NEUTROPHILS % (AUTO) 76.2 % (42.2-75.2); PLATELET COUNT (AUTO) 362 K/uL (140-450); RED BLOOD CELL COUNT(AUTO) 4.11 MIL/uL (4.20-6.10); RED CELL DISTRIBUTION WIDTH 14.7 % (11.6-13.7); WHITE BLOOD COUNT (AUTO) 8.6 K/uL (4.8-10.8)
[2019-09-19] MEDS: ALBUTEROL SULFATE/IPRATROPIU 3 ML SOL IH PRN (09:27)
--- NOTE | 2019-09-19 09:30 | NUR ---
DUE MEDS GIVEN PO. TOLERATED WELL. SUCTIONING AND ORAL CARE PROVIDED
[2019-09-19 11:45] LABS: ANION GAP 23.7 (8-16); CARBON DIOXIDE 18.5 mmol/L (21-32); CREATININE 0.2 mg/dL (0.6-1.3); POTASSIUM 3.2 mmol/L (3.5-5.1)
[2019-09-19 11:52] LABS: MAGNESIUM 1.5 mg/dL (1.8-2.4); PHOSPHORUS 3.4 mg/dL (2.5-4.9)
[2019-09-19 12:00] VITALS: BP 112/69
--- NOTE | 2019-09-19 12:00 | NUR ---
ZOSYN IVPB GIVEN ORDERED INFUSING WELL
[2019-09-19] MEDS ORDERED: LACT10CA PO (13:12)
[2019-09-19] MEDS ORDERED: ZOS3.375I IV (13:12)
[2019-09-19] MEDS ORDERED: POTASSIUM CHLORIDE 10 MEQ TABER PO SCH (14:00)
--- NOTE | 2019-09-19 14:05 | NUR ---
GAVE REPORT TO RONDA FROM [facility] FOR DISCHARGE INSTRUCTIONS. WIRELESS CELLULAR TECHNICIAN TIME IS 1500
--- NOTE | 2019-09-19 15:15 | NUR ---
DISCHARGED PT. DISCHARGE INSTRUCTIONS GIVEN. PT VERBALIZED UNDERSTANDING. IV SITE ON RAC 20G LEFT INTACT FOR IV ATB USE IN FACILITY. MOTION PICTURE SET UP WORKER REMOVED. REPORT GIVEN TO EMT. PT IN STABLE CONDITION.
== END 2019-09-19 15:10 | DRG 720 ==
LOC: EEVIPCON 11:12 → MED 11:12 → MIC 12:41 → MTU 09-16 19:43
PROVIDERS: ADMIT General Practice; ATTEND General Practice
PROC: 5A1945Z Respiratory Ventilation, 24-96 Consecutive Hours (ICD-10-PCS; principal; 2019-09-15)
PROC: 5A1935Z Respiratory Ventilation, Less than 24 Consecutive Hours (ICD-10-PCS; 2019-09-19)
DX: A41.9 Sepsis, unspecified organism (principal); J96.21 Acute and chronic respiratory failure with hypoxia; J69.0 Pneumonitis due to inhalation of food and vomit; G82.50 Quadriplegia, unspecified; E43 Unspecified severe protein-calorie malnutrition; I50.43 Acute on chronic combined systolic (congestive) and diastolic (congestive) heart failure; G71.01 Duchenne or Becker muscular dystrophy; J15.1 Pneumonia due to Pseudomonas; Z93.0 Tracheostomy status; I11.0 Hypertensive heart disease with heart failure; I42.9 Cardiomyopathy, unspecified; J98.11 Atelectasis; J98.4 Other disorders of lung; K21.9 Gastro-esophageal reflux disease without esophagitis; G89.29 Other chronic pain; M54.9 Dorsalgia, unspecified; G47.33 Obstructive sleep apnea (adult) (pediatric); K59.00 Constipation, unspecified; L30.8 Other specified dermatitis; Z03.818 Encounter for observation for suspected exposure to other biological agents ruled out; E87.6 Hypokalemia; Y95 Nosocomial condition; Z68.23 Body mass index [BMI] 23.0-23.9, adult; Z79.899 Other long term (current) drug therapy
CPT/HCPCS: 36415; 36600; 71045; 80048; 80053; 80202; 81001; 82140; 82150; 82550; 82553; 82803; 83036; 83605; 83615; 83690; 83735; 83880; 84100; 84134; 84439; 84443; 84484; 85025; 85379; 85610; 85651; 85730; 86140; 87040; 87070; 87081; 87086; 87186; 87205; 87804; 92610; 93005; 94003; 94640; 96365; 97161-GP; 99291; C1758; C9113; J1644; J2543; J3370; J3475; J7030; J7060; Q0092